=== PATIENT | female | born 1945 | race Caucasian/White ===

== ENCOUNTER 2017-01-26 06:28 | Day surgery (SDC) | payer MEDICARE ==
[~2017-01-26] VITALS: Ht 160 cm; Wt 66.8 kg
[2017-01-26 08:11] VITALS: BP 120/90; PULSE 60; TEMP 97.5
[2017-01-26] MEDS ORDERED: BUMEX2 MG PO (08:21)
[2017-01-26] MEDS ORDERED: ASPIRIN 32325 MG/TAB PO (08:21)
[2017-01-26] MEDS ORDERED: CALCIUM-500 5001 CTB PO (08:23)
[2017-01-26] MEDS ORDERED: CRESTOR20 MG PO (08:24)
[2017-01-26] MEDS ORDERED: NORCO 325 MG-7.1 TAB PO (08:24)
[2017-01-26] MEDS ORDERED: LEVEMIR100 U/ML SQ (08:25)
[2017-01-26] MEDS ORDERED: MUCINEX1200 MG PO (08:25)
[2017-01-26] MEDS ORDERED: PLAVIX 75MG TAB75 MG PO (08:26)
[2017-01-26] MEDS ORDERED: MYSOLINE 5050 MG/TAB PO (08:26)
[2017-01-26] MEDS ORDERED: SEROQUEL 1100 MG/TAB PO (08:27)
[2017-01-26] MEDS ORDERED: SYNTHROID0.112 MG/T PO (08:27)
[2017-01-26] MEDS ORDERED: VITAMIN C500 MG PO (08:29)
[2017-01-26] MEDS ORDERED: TRICOR145 MG PO (08:29)
[2017-01-26] MEDS ORDERED: WELLBUTRIN XL150 MG PO (08:30)
[2017-01-26] MEDS ORDERED: CRANBERRY1 POW PO (08:31)
[2017-01-26] MEDS ORDERED: CIPRO 500MG TA500 MG PO (08:32)
[2017-01-26] MEDS ORDERED: DULCOLAX STOOL100 MG PO (08:32)
== END 2017-01-26 10:00 | disposition home or self-care (01) ==
LOC: SDCO 06:28
DX: N36.42 Intrinsic sphincter deficiency (ISD) (principal); Z53.09 Procedure and treatment not carried out because of other contraindication; R73.9 Hyperglycemia, unspecified; F17.210 Nicotine dependence, cigarettes, uncomplicated